=== PATIENT | female | born 1945 | race Asian ===

== ENCOUNTER 2016-12-01 01:06 | Emergency (ER) | payer OTHER ==
--- NOTE | 2016-12-01 01:37 | PDOC ---
History of Present Illness - General History Source: Patient Exam Limitations: No Limitations, Language Barrier (wolof speaking female ) - History of Present Illness Initial Comments: 12/01/16 01:43 The patient is a 71 year old wolof speaking female with significant past medical history of hypertension and hyperlipidemia who presents to the ED for 1 week of productive cough. Communicated via [employer]. Patient reports she developed a productive cough with green sputum and associated tactile fever and chills. Denies SOB or chest pain. The patient denies abdominal pain, nausea, vomiting, and diarrhea. Allergies: NKDA Social History: Denies tobacco or alcohol use. Past Surgical History: None reported PCP: None reported <Keerthi Wilson - Last Filed: 12/01/16 02:59> - General History Source: Patient <Kaushik Regan - Last Filed: 12/01/16 03:12> - General Stated Complaint: SICK Time Seen by Provider: 12/01/16 01:30 Past History <Keerthi Wilson - Last Filed: 12/01/16 02:59> <Kaushik Regan - Last Filed: 12/01/16 03:12> - Past Medical History Allergies/Adverse Reactions: Allergies Allergy/AdvReac Type Severity Reaction Status Date / Time No Known Allergies Allergy Verified 12/01/16 01:42 Home Medications: Ambulatory Orders Azithromycin [Zithromax -] 250 mg PO UTDICT #6 tab 12/01/16 Guaifenesin AC [Robitussin AC -] 5 ml PO TID #100 liquid MDD 20 12/01/16 Review of Systems - Review of Systems Able to Perform ROS?: Yes Comments:: 12/01/16 01:43 CONSTITUTIONAL: +tactile fever, chills Absent: no fatigue EYES: Absent: visual changes ENT: Absent: ear pain, no sore throat CARDIOVASCULAR: Absent: chest pain, no palpitations RESPIRATORY: +productive cough with green sputum Absent: no SOB GI: Absent: abdominal pain, no nausea, no vomiting, no constipation, no diarrhea GENITOURINARY: Absent: dysuria, no frequency, no hematuria MUSCULOSKELETAL: Absent: back pain, no arthralgia, no myalgia SKIN: Absent: rash NEURO: Absent: headache <Keerthi Wilson - Last Filed: 12/01/16 02:59> *Physical Exam - Physical Exam Comments: 12/01/16 01:43 GENERAL: Well-appearing, well-nourished. No apparent distress. HEENT: Normocephalic, atraumatic. PERRL, EOM intact. CARDIOVASCULAR: Normal S1, S2. Regular rate and rhythm. PULMONARY: No respiratory distress. No conversational dyspnea. Scattered rhonchi throughout all lung bashir. ABDOMEN: Soft, non-distended, non-tender. EXTREMITIES: Normal ROM in all four extremities. No gross deformities. SKIN: Warm, dry. No rash NEUROLOGICAL: No focal neurological deficits. <Keerthi Wilson - Last Filed: 12/01/16 02:59> ED Treatment Course - RADIOLOGY Radiograph Interpretation: 12/01/16 02:59 EXAM: X-ray chest Reviewed by Imaging director of donor relations: FINDINGS: The cardiomediastinal silhouette is normal. The lungs are clear. There is mamillation of the right hemidiaphragm. No fractures identified. IMPRESSION: No acute pathology. <Keerthi Wilson - Last Filed: 12/01/16 02:59> Medical Decision Making - Medical Decision Making 12/01/16 03:11 Dr. Regan: The scribe's documentation has been prepared under my direction and personally reviewed by me in its entirery. I confirm that the note above accurately reflects all work, treatment, procedures, and medical decision making performed by me. <Kaushik Regan - Last Filed: 12/01/16 03:12> *DC/Admit/Observation/Transfer - Attestations Scribe Attestion: 12/01/16 01:44 Documentation prepared by Keerthi Wilson, acting as medical imaging technician for Kaushik Regan MD/. <Keerthi Wilson - Last Filed: 12/01/16 02:59> - Discharge Dispostion Admit: No <Kaushik Regan - Last Filed: 12/01/16 03:12> Diagnosis at time of Disposition: Bronchitis - Discharge Dispostion Disposition: HOME Condition at time of disposition: Stable - Patient Instructions Printed Discharge Instructions: DI for Acute Bronchitis Additional Instructions: Take medication as directed. Follow up with your doctor. Return of any problems Print Language: Occitan
[2016-12-01] MEDS ORDERED: ALBUTEROL SO4 2.5/IPRATROPIUM 0.5 INH SOL 3 ML VIAL.NEB. NEB STA (01:38)
[2016-12-01 01:48] VITALS: BP 124/76; PULSE 80; TEMP 98.4; BMI 21.4
[2016-12-01] MEDS ORDERED: AZITHROMYCIN 250 MG TABLET (FP) PO STA (03:14)
[2016-12-01] MEDS ORDERED: guaiFENesin/CODEINE 10 ML UNIT-DOSE CUPS PO ONE (03:14)
[2016-12-01] MEDS ORDERED: AZITHROMYCIN 250 MG TABLET (FP) ONE (03:24)
[2016-12-01] MEDS ORDERED: guaiFENesin/CODEINE 5 ML UNIT-DOSE CUPS PO ONE (03:24)
== END 2016-12-01 03:31 | disposition home or self-care (01) ==
LOC: JER 01:06
PROC: 3E0F7GC Introduction of Other Therapeutic Substance into Respiratory Tract, Via Natural or Artificial Opening (ICD-10-PCS; principal; 2016-12-01)
DX: J40 Bronchitis, not specified as acute or chronic (principal); I10 Essential (primary) hypertension; E78.5 Hyperlipidemia, unspecified
CPT/HCPCS: 71020-TC; 99282-25